=== PATIENT | female | born 1990 | race Caucasian/White ===

== ENCOUNTER → 2017-04-04 | Outpatient (REF) | payer OTHER | LOC: M LAB REF 12:40 | PROVIDERS: ATTEND Specialist | DX: Z11.3 Encounter for screening for infections with a predominantly sexual mode of transmission (principal) | CPT/HCPCS: 87491; 87591; G0123 ==

== ENCOUNTER → 2017-04-19 | Outpatient (REF) | payer OTHER ==
[2017-04-19 09:08] LABS: HCG, SERUM QUANTITATIVE < 1.0 MIU/ML
[2017-04-19 09:21] LABS: ESTRADIOL 59.2 PG/ML; FOLLICLE STIMULATING HORMONE 6.1 mIU/mL; LUTEINIZING HORMONE 6.5 mIU/mL; PROGESTERONE 0.5 NG/ML
== END ==
LOC: M LABDRAW1 08:11
PROVIDERS: ATTEND Obstetrics & Gynecology Reproductive Endocrinology
DX: N97.9 Female infertility, unspecified (principal)

== ENCOUNTER → 2017-04-26 | Outpatient (REF) | payer OTHER ==
[2017-04-26 11:18] LABS: LUTEINIZING HORMONE 5.8 mIU/mL; PROGESTERONE 0.4 NG/ML
[2017-04-26 11:19] LABS: ESTRADIOL 92.8 PG/ML
== END ==
LOC: M LABDRAW1 10:05
PROVIDERS: ATTEND Obstetrics & Gynecology Reproductive Endocrinology
DX: N97.9 Female infertility, unspecified (principal)

== ENCOUNTER → 2017-05-12 | Outpatient (REF) | payer OTHER ==
[2017-05-12 12:16] LABS: HCG, SERUM QUANTITATIVE < 1.0 MIU/ML
[2017-05-12 12:22] LABS: PROGESTERONE 14.4 NG/ML
== END ==
LOC: M LABDRAW1 09:19
PROVIDERS: ATTEND Obstetrics & Gynecology Reproductive Endocrinology
DX: Z32.00 Encounter for pregnancy test, result unknown (principal)

== ENCOUNTER → 2017-05-19 | Outpatient (REF) | payer OTHER ==
[2017-05-19 12:20] LABS: ESTRADIOL 46.2 PG/ML; HCG, SERUM QUANTITATIVE < 1.0 MIU/ML; PROGESTERONE 0.2 NG/ML
[2017-05-19 12:21] LABS: FOLLICLE STIMULATING HORMONE 4.6 mIU/mL
== END ==
LOC: M LABDRAW1 09:30
PROVIDERS: ATTEND Obstetrics & Gynecology Reproductive Endocrinology
DX: N97.9 Female infertility, unspecified (principal)

== ENCOUNTER → 2017-05-24 | Outpatient (REF) | payer OTHER ==
[2017-05-24 11:55] LABS: ESTRADIOL 83.2 PG/ML; LUTEINIZING HORMONE 5.4 mIU/mL; PROGESTERONE 0.3 NG/ML
== END ==
LOC: M LABDRAW1 10:02
PROVIDERS: ATTEND Obstetrics & Gynecology Reproductive Endocrinology
DX: N97.9 Female infertility, unspecified (principal)

== ENCOUNTER → 2017-05-26 | Outpatient (CLI) | payer OTHER ==
--- NOTE | 2017-05-26 08:26 | REP ---
Transvaginal pelvic sonography: History: Infertility study. Findings: Uterine dimensions today are 6.2 x 3.9 x 4.8 cm. Endometrial echo is 0.6 cm thick. No focal uterine mass is seen. No free fluid is noted. The right ovary has overall dimensions of 3.1 x 1.9 x 3.6 cm today. There is a 2.1 x 1.9 cm follicle in the right ovary and multiple follicles are seen in the right ovary ranging in size from 0.6-0.8 cm. Left ovaries dimensions of 3.9 x 2.6 x 2.3 cm. There is a 1.5 x 1.7 cm follicle in the left ovary and multiple follicles ranging in size from 0.6-0.8 cm are seen. Impression: Ovarian follicle examination as above. Signed by Porfirio Watson MD 05/26/2017 02:38 P
[2017-05-26 10:38] LABS: LUTEINIZING HORMONE 6.3 mIU/mL; PROGESTERONE 0.2 NG/ML
== END ==
LOC: M RAD 06:18
PROVIDERS: ATTEND Obstetrics & Gynecology Reproductive Endocrinology
DX: N97.9 Female infertility, unspecified (principal)

== ENCOUNTER → 2017-06-26 | Outpatient (REF) | payer OTHER ==
[2017-06-26 11:49] LABS: PROGESTERONE 0.2 NG/ML
[2017-06-26 11:50] LABS: ESTRADIOL 350.7 PG/ML; LUTEINIZING HORMONE 7.9 mIU/mL
== END ==
LOC: M LABDRAW1 08:21
PROVIDERS: ATTEND Obstetrics & Gynecology Reproductive Endocrinology
DX: N97.9 Female infertility, unspecified (principal)

== ENCOUNTER → 2017-07-04 | Outpatient (CLI) | payer OTHER ==
[2017-07-04 10:48] LABS: ESTRADIOL 153.8 PG/ML; PROGESTERONE 39.6 NG/ML
== END ==
LOC: M LABDRAW1 08:09
PROVIDERS: ATTEND Obstetrics & Gynecology Reproductive Endocrinology
DX: N97.9 Female infertility, unspecified (principal)

== ENCOUNTER → 2017-07-11 | Outpatient (REF) | payer OTHER ==
[2017-07-11 12:27] LABS: HCG, SERUM QUANTITATIVE < 1.0 MIU/ML
[2017-07-11 12:30] LABS: PROGESTERONE 16.2 NG/ML
== END ==
LOC: M LABDRAW1 11:06
PROVIDERS: ATTEND Obstetrics & Gynecology Reproductive Endocrinology
DX: Z32.00 Encounter for pregnancy test, result unknown (principal)

== ENCOUNTER → 2017-07-17 | Outpatient (REF) | payer OTHER ==
[2017-07-17 13:13] LABS: HCG, SERUM QUANTITATIVE < 1.0 MIU/ML
[2017-07-17 13:47] LABS: PROGESTERONE 0.3 NG/ML
[2017-07-17 13:48] LABS: ESTRADIOL 68.7 PG/ML; FOLLICLE STIMULATING HORMONE 4.9 mIU/mL; LUTEINIZING HORMONE 5.8 mIU/mL
== END ==
LOC: M LABDRAW1 11:29
PROVIDERS: ATTEND Obstetrics & Gynecology Reproductive Endocrinology
DX: N97.9 Female infertility, unspecified (principal)

== ENCOUNTER → 2017-08-16 | Outpatient (REF) | payer OTHER ==
[2017-08-16 12:06] LABS: ESTRADIOL 62.8 PG/ML; FOLLICLE STIMULATING HORMONE 4.8 mIU/mL; HCG, SERUM QUANTITATIVE < 1.0 MIU/ML; LUTEINIZING HORMONE 5.9 mIU/mL
[2017-08-16 12:06] LABS: PROGESTERONE < 0.2 NG/ML
== END ==
LOC: M LABDRAW1 10:06
DX: Z31.41 Encounter for fertility testing (principal)

== ENCOUNTER → 2017-08-22 | Outpatient (REF) | payer OTHER ==
[2017-08-22 12:26] LABS: PROGESTERONE 0.2 NG/ML
[2017-08-22 12:27] LABS: LUTEINIZING HORMONE 7.6 mIU/mL
== END ==
LOC: M LABDRAW1 11:41
DX: E28.2 Polycystic ovarian syndrome (principal)

== ENCOUNTER → 2017-08-24 | Outpatient (REF) | payer OTHER ==
[2017-08-24 11:28] LABS: PROGESTERONE 0.8 NG/ML
[2017-08-24 11:28] LABS: LUTEINIZING HORMONE 71.5 mIU/mL
[2017-08-24 11:29] LABS: ESTRADIOL 241.2 PG/ML
== END ==
LOC: M LABDRAW1 10:49
DX: N97.9 Female infertility, unspecified (principal)

== ENCOUNTER → 2017-09-01 | Outpatient (REF) | payer OTHER ==
[2017-09-01 12:00] LABS: ESTRADIOL 125.1 PG/ML
== END ==
LOC: M LABDRAW1 11:24
DX: N97.9 Female infertility, unspecified (principal)

== ENCOUNTER → 2017-09-08 | Outpatient (REF) | payer OTHER ==
[2017-09-08 10:53] LABS: HCG, SERUM QUANTITATIVE < 1.0 MIU/ML
[2017-09-08 10:58] LABS: PROGESTERONE 3.3 NG/ML
== END ==
LOC: M LABDRAW1 08:10
DX: Z32.00 Encounter for pregnancy test, result unknown (principal)
CPT/HCPCS: 84702

== ENCOUNTER → 2017-10-13 | Outpatient (REF) | payer OTHER ==
[2017-10-13 12:37] LABS: PROGESTERONE 2.6 NG/ML
[2017-10-13 12:37] LABS: LUTEINIZING HORMONE 5.5 mIU/mL
[2017-10-13 12:38] LABS: FOLLICLE STIMULATING HORMONE 4.2 mIU/mL
== END ==
LOC: M LABDRAW1 11:49
DX: E28.9 Ovarian dysfunction, unspecified (principal)

== ENCOUNTER → 2017-10-18 | Outpatient (REF) | payer OTHER ==
[2017-10-18 12:53] LABS: PROGESTERONE 0.4 NG/ML
[2017-10-18 12:53] LABS: ESTRADIOL 1177.4 PG/ML; LUTEINIZING HORMONE 1.6 mIU/mL
== END ==
LOC: M LABDRAW1 11:40
DX: E28.9 Ovarian dysfunction, unspecified (principal)
CPT/HCPCS: 83002

== ENCOUNTER → 2017-10-20 | Outpatient (REF) | payer OTHER ==
[2017-10-20 12:18] LABS: PROGESTERONE 0.8 NG/ML
[2017-10-20 12:19] LABS: LUTEINIZING HORMONE 0.7 mIU/mL
[2017-10-20 12:25] LABS: ESTRADIOL 2391.6 PG/ML
== END ==
LOC: M LABDRAW1 08:22
DX: E28.9 Ovarian dysfunction, unspecified (principal)
CPT/HCPCS: 83002

== ENCOUNTER → 2017-10-23 | Outpatient (REF) | payer OTHER ==
[2017-10-23 12:47] LABS: PROGESTERONE 1.8 NG/ML
[2017-10-23 12:47] LABS: LUTEINIZING HORMONE 0.5 mIU/mL
[2017-10-23 13:50] LABS: ESTRADIOL 6076.8 PG/ML
== END ==
LOC: M LABDRAW1 08:15
DX: E28.9 Ovarian dysfunction, unspecified (principal)

== ENCOUNTER → 2017-11-08 | Outpatient (REF) | payer OTHER ==
[2017-11-08 12:15] LABS: HCG, SERUM QUANTITATIVE < 1.0 MIU/ML
[2017-11-08 12:26] LABS: PROGESTERONE 0.3 NG/ML
[2017-11-08 12:26] LABS: LUTEINIZING HORMONE 3.2 mIU/mL
[2017-11-08 12:27] LABS: ESTRADIOL 59.1 PG/ML; FOLLICLE STIMULATING HORMONE 4.1 mIU/mL
== END ==
LOC: M LABDRAW1 10:59
DX: E28.9 Ovarian dysfunction, unspecified (principal)
CPT/HCPCS: 83001

== ENCOUNTER → 2017-11-28 | Outpatient (REF) | payer OTHER ==
[2017-11-28 12:12] LABS: PROGESTERONE 50.8 NG/ML
[2017-11-28 12:12] LABS: ESTRADIOL 604.8 PG/ML
== END ==
LOC: M LABDRAW1 10:25
DX: E28.9 Ovarian dysfunction, unspecified (principal)

== ENCOUNTER → 2017-12-04 | Outpatient (REF) | payer OTHER ==
[2017-12-04 10:50] LABS: HCG, SERUM QUANTITATIVE 328 MIU/ML
[2017-12-04 11:02] LABS: PROGESTERONE 56.2 NG/ML
== END ==
LOC: M LABDRAW1 08:06
DX: E28.9 Ovarian dysfunction, unspecified (principal)
CPT/HCPCS: 84702

== ENCOUNTER → 2017-12-06 | Outpatient (REF) | payer OTHER ==
[2017-12-06 11:36] LABS: HCG, SERUM QUANTITATIVE 663 MIU/ML
[2017-12-06 12:27] LABS: ESTRADIOL 201.3 PG/ML
[2017-12-06 12:53] LABS: PROGESTERONE 54.9 NG/ML
== END ==
LOC: M LABDRAW1 10:04
DX: E28.9 Ovarian dysfunction, unspecified (principal)

== ENCOUNTER → 2018-03-15 | Outpatient (CLI) | payer OTHER | LOC: M RAD 07:39 | DX: Z34.82 Encounter for supervision of other normal pregnancy, second trimester (principal); Z36.89 Encounter for other specified antenatal screening; Z3A.19 19 weeks gestation of pregnancy ==

== ENCOUNTER → 2018-03-30 | Outpatient (CLI) | payer OTHER | LOC: M RAD 08:08 | DX: Z34.82 Encounter for supervision of other normal pregnancy, second trimester (principal); Z36.89 Encounter for other specified antenatal screening; Z3A.19 19 weeks gestation of pregnancy | CPT/HCPCS: 76817 ==